=== PATIENT | female | born 1965 | race Caucasian/White ===

== ENCOUNTER 2017-01-22 08:07 | Observation (INO) | payer MEDICAID ==
[2017-01-22] MEDS ORDERED: LR 1,000 ML IV ONE (08:39)
[2017-01-22] MEDS ORDERED: LIDOCAINE 1% 5 ML SDV ID PRN (08:39)
[2017-01-22] MEDS ORDERED: LIDOCAINE 1% 30 ML SDV ONE (09:00)
[2017-01-22] MEDS ORDERED: BACITRACIN 50,000 UNITS/10 ML SYR IRR ONE (09:01)
[2017-01-22] MEDS ORDERED: POLYMYXIN B SULFATE 500,000 UNIT/10 ML SYR IRR ONE (09:01)
[2017-01-22] MEDS ORDERED: VANCOMYCIN 1 GM VIAL ONE (09:01)
[2017-01-22] MEDS ORDERED: BUPIVACAINE 0.5% 30 ML SDV ONE (09:01)
[2017-01-22] MEDS ORDERED: MIDAZOLAM 2 MG/2 ML VIAL ONE (10:27)
[2017-01-22] MEDS ORDERED: fentaNYL 100 MCG/2 ML INJ ONE ×4 (10:31→13:22)
[2017-01-22] MEDS ORDERED: ONDANSETRON 4 MG/2 ML VIAL ONE (14:12)
--- NOTE | 2017-01-22 14:12 | POSTOPPROG ---
Post Op Note Date of Operation: 01/22/17 Surgeon: Isma Landeros Consumer Loan Officer: Ervin Patton Anesthesia: GET(General Endotracheal) Pre-op Diagnosis: substernal goiter with airway compression Post-op Diagnosis: same Procedure: cervical substernal thryoidectomy Inf/Abcess present in the surg proc area at time of surgery?: No Drains: Porfirio Bo Specimen(s): Thyroid
[2017-01-22] MEDS ORDERED: D5W 1/2 NS W/ 20 KCl/L 1,000 ML IV SCH (14:15)
[2017-01-22] MEDS: OXYCODONE/APAP 5/325 TAB PO PRN ×3 (15:34→23:28)
[2017-01-22] MEDS ORDERED: BACITRACIN OINTMENT 1 PACKET TP ONE (17:28)
--- NOTE | 2017-01-23 00:54 | GOP ---
[f rep st] OPERATIVE REPORT DATE OF OPERATION: SURGEON: Isma Landeros MD [employer]RB[employer] RENEWAL MANAGER: Ervin Patton MD. ANESTHESIA: General endotracheal. PREOPERATIVE DIAGNOSIS: Thyroid goiter, substernal. POSTOPERATIVE DIAGNOSIS: Thyroid goiter, substernal. PROCEDURE PERFORMED: Cervical approach to substernal thyroid goiter removal, subtotal thyroidectomy . FINDINGS: Substernal goiter, multinodular. The identification of the upper 2 parathyroids were per formed but not the lower 2. SPECIMENS: Thyroid to permanent pathology, short stitch on left partial thyroid lobectomy and long stitch on right thyroid upper pole. ESTIMATED BLOOD LOSS: 100 mL. INDICATIONS: A 51-year-old patient who presents with substernal goiter with compressive symptoms. DESCRIPTION OF PROCEDURE: Patient was brought into the operating room. After induction of endotrac heal anesthesia in supine position, she was placed with neck extended for thyroidectomy. The neck w as prepped and the chest with chlorhexidine, draped sterilely. Time-out procedure was then performe d according to institutional standards. Local anesthetic was infused in the skin and subcutaneous t issues of the neck and incision was made in the lower aspect of the neck, deepened with electrocaute ry. The platysma was divided with cautery. The midline raphe was identified and divided. Substern al thyroid was identified and the goiter was then removed. The right and left thyroid superior pole s were identified. The right superior pole was divided with Harmonic Scalpel. The nerve was identi fied as well as the superior parathyroid gland on the right. The inferior pole was then dissected f ree and a small amount of thyroid was left by the tubercle of [place] in removing the right thyr oid lobe. The isthmus was then completely dissected off and a partial left thyroid lobectomy was pe rformed seeing the upper parathyroid gland but not the inferior and leaving the nerve and approximat isela 5 mm of left gland behind. Hemostasis was assured with Ligaclips and judicious use of electroca utery. Loren hemostatic agent was used and a 15-[place]ian channel drain was used to drain the neck, b rought out through the inferior flap. The incision was closed in layers using 3-0 Polysorb and 4-0 Monocryl. Dermabond was applied. The patient was extubated before taken to the recovery room in st able condition. Needle, instrument, and sponge counts verified to be correct x2. COMPLICATIONS: None. FLUIDS GIVEN: 800 cc crystalloid. /[id number]/MODL
[2017-01-23] MEDS: OXYCODONE/APAP 5/325 TAB PO PRN ×4 (01:43→10:50)
[2017-01-23 05:17] LABS: IONIZED CALCIUM 1.05 MMOL/L (1.12-1.30)
[2017-01-23 08:29] VITALS: BP 96/51; PULSE 69; RESP 16; TEMP 98.1; O2SAT 96
== END 2017-01-23 13:00 | disposition home or self-care (01) ==
LOC: F3E 08:07
PROVIDERS: ADMIT Surgery; ATTEND Surgery
PROC: 0GTK0ZZ Resection of Thyroid Gland, Open Approach (ICD-10-PCS; principal; 2017-01-22 09:30)
DX: E04.9 Nontoxic goiter, unspecified (principal)
CPT/HCPCS: 60271; G0378; J2250; J2405; J3010; J3370